=== PATIENT | female | born 1950 ===

== ENCOUNTER → 2020-12-09 07:30 | Outpatient (CLI) | payer OTHER ==
[~2020-12-09 07:30] MED LIST: AZOPT5 ML; RELAGESIC TABLE1 TAB; TRAMADOL HCL-AP1 TAB; TRAVATAN 0.0042.5 ML
== END | disposition home or self-care (01) ==
LOC: LAB 07:30
PROVIDERS: ATTEND Obstetrics & Gynecology
DX: R31.0 Gross hematuria (principal)